=== PATIENT | female | born 1995 | race Caucasian/White ===

== ENCOUNTER 2016-06-14 23:21 | Emergency (ER) | payer SELFPAY ==
[2016-06-15 00:19] VITALS: BP 151/103
== END 2016-06-15 04:15 | disposition left against medical advice (07) ==
LOC: ED 23:21
DX: N93.9 Abnormal uterine and vaginal bleeding, unspecified (principal); Z53.21 Procedure and treatment not carried out due to patient leaving prior to being seen by health care provider

== ENCOUNTER 2017-06-14 16:18 | Emergency (ER) | payer SELFPAY ==
[2017-06-14 16:57] VITALS: BP 143/104
[2017-06-14] MEDS ORDERED: ASPIRIN PO ONE (16:57)
[2017-06-14 17:35] LABS: Basophils # (Auto) 0.1 K/mm3 (0.0-0.1); Basophils % (Auto) 0.9 % (0.0-1.8); Eosinophils # (Auto) 0.2 K/mm3 (0.0-0.4); Eosinophils % (Auto) 2.4 % (0.0-4.3); Hematocrit 38.2 % (30.3-42.9); Hemoglobin 12.7 gm/dl (10.1-14.3); Lymphocytes # (Auto) 2.2 K/mm3 (1.2-5.4); Lymphocytes % (Auto) 33.3 % (13.4-35.0); Mean Corpuscular HGB Conc 33 % (30-34); Mean Corpuscular Hemoglobin 28 pg (28-32); Mean Corpuscular Volume 84 fl (79-97); Monocytes # (Auto) 0.6 K/mm3 (0.0-0.8); Monocytes % (Auto) 8.8 % (0.0-7.3); Platelet Count 193 K/mm3 (140-440); Red Blood Count 4.56 M/mm3 (3.65-5.03); Red Cell Distribution Width 14.3 % (13.2-15.2)
[2017-06-14 17:46] LABS: BUN/Creatinine Ratio 17; Blood Urea Nitrogen 10 mg/dL (7-17); Calcium 9.4 mg/dL (8.4-10.2); Hemolysis Index 13
[2017-06-14 17:54] LABS: HCG Qualitative,Urine Negative (Negative)
[2017-06-14 17:59] LABS: Bilirubin,Urine NEG (Negative); Blood,Urine NEG (Negative); Color,Urine Yellow (Yellow); Protein,Urine <15 mg/dL mg/dL (Negative); Urobilinogen,Urine < 2.0 mg/dL (<2.0)
== END 2017-06-14 18:04 | disposition left against medical advice (07) ==
LOC: ED 16:18
DX: R07.9 Chest pain, unspecified (principal); Z53.21 Procedure and treatment not carried out due to patient leaving prior to being seen by health care provider
CPT/HCPCS: 36415; 80048; 81001; 81025; 84484; 85025; 93005; 93010

== ENCOUNTER 2017-11-08 13:01 | Emergency (ER) | payer SELFPAY ==
[2017-11-08 14:51] VITALS: BP 149/99
--- NOTE | 2017-11-08 15:54 | Emergency Department Report ---
<ZAYNAB HALL LYNCANDIDO - Last Filed: 11/08/17 18:48> ED Abdominal Pain HPI - General Chief Complaint: Back Pain/Injury Stated Complaint: LOWER BACK PAIN Time Seen by Provider: 11/08/17 15:23 Source: patient Mode of arrival: Ambulatory Limitations: No Limitations - History of Present Illness Initial Comments: This is a 22-year-old -English female who presents with lower abdominal and back pain for one week. Patient reports discomfort to pelvic area. There are nausea without vomiting and diarrhea with associated symptoms. Patient reports last initial period 10/07/2017, A0. Patient admits to unprotected intercourse. She is also complaining of urgency and frequency without vaginal discharge. Patient states a laxative she on Sunday had a normal bowel movement and been having diarrhea ever since. Feels feel bloated and crampy with intermittent sharp pains radiating to back. She denies vaginal bleeding or discharge, fever, chest pain, and vomiting. MD Complaint: abdominal pain Onset/Timin -: week(s) Location: diffuse Radiation: back (lower back ) Migration to: no migration Severity: mild Severity scale (0 -10): 4 Quality: cramping Consistency: intermittent Improves With: nothing Worsens With: eating Associated Symptoms: nausea, diarrhea. denies: vomiting, fever, chills, constipation, dysuria, hematemesis, hematochezia, melena, hematuria, anorexia, syncope - Related Data LMP Date: 10/07/17 Previous Rx's Medication Instructions Recorded Last Taken Type Sulfamethoxazole/Trimethoprim 1 each PO BID #14 tablet 11/08/17 Unknown Rx [Bactrim DS TAB] Allergies Allergy/AdvReac Type Severity Reaction Status Date / Time No Known Allergies Allergy Unverified 06/15/16 00:15 ED Review of Systems ROS: Stated complaint: LOWER BACK PAIN Other details as noted in HPI Constitutional: denies: chills, fever Respiratory: denies: cough, shortness of breath, wheezing Cardiovascular: denies: chest pain, palpitations Gastrointestinal: abdominal pain (difuse abdominal pain), nausea, diarrhea Genitourinary: denies: urgency, dysuria, discharge Skin: denies: rash, lesions Neurological: denies: headache, weakness, paresthesias Psychiatric: denies: anxiety, depression ED Past Medical Hx - Past Medical History Hx Hypertension: No Hx Sickle Cell Disease: Yes (trait only) - Surgical History Past Surgical History?: No - Social History Smoking Status: Current Every Day Smoker Substance Use Type: Marijuana - Medications Home Medications: Home Medications Medication Instructions Recorded Confirmed Last Taken Type Sulfamethoxazole/Trimethoprim 1 each PO BID #14 tablet 11/08/17 Unknown Rx [Bactrim DS TAB] ED Physical Exam - General Limitations: No Limitations General appearance: alert, in no apparent distress, obese - Respiratory Respiratory exam: Present: normal lung sounds bilaterally. Absent: respiratory distress - Cardiovascular Cardiovascular Exam: Present: regular rate, normal rhythm. Absent: systolic murmur, diastolic murmur, rubs, gallop - GI/Abdominal GI/Abdominal exam: Present: soft, tenderness (left upper quadrant), normal bowel sounds. Absent: guarding, rebound, rigid, organomegaly, mass, bruit - Back Exam Back exam: Present: full ROM. Absent: CVA tenderness (R), CVA tenderness (L) - Neurological Exam Neurological exam: Present: alert, oriented X3 - Psychiatric Psychiatric exam: Present: normal affect, normal mood - Skin Skin exam: Present: warm, dry, intact, normal color. Absent: rash ED Course Vital Signs 11/08/17 14:46 Temperature 99.0 F Pulse Rate 90 Respiratory 18 Rate Blood Pressure 149/99 O2 Sat by Pulse 100 Oximetry ED Medical Decision Making - Lab Data Result diagrams: 11/08/17 16:03 11/08/17 16:03 Lab Results 11/08/17 11/08/17 11/08/17 Range/Units 16:03 16:03 16:03 WBC 6.7 (4.5-11.0) K/mm3 RBC 4.42 (3.65-5.03) M/mm3 Hgb 11.3 (10.1-14.3) gm/dl Hct 34.5 (30.3-42.9) % MCV 78 L (79-97) fl MCH 26 L (28-32) pg MCHC 33 (30-34) % RDW 17.0 H (13.2-15.2) % Plt Count 220 (140-440) K/mm3 Sodium 138 (137-145) mmol/L Potassium 3.7 (3.6-5.0) mmol/L Chloride 99.4 (98-107) mmol/L Carbon Dioxide 28 (22-30) mmol/L Anion Gap 14 mmol/L BUN 8 (7-17) mg/dL Creatinine 0.7 (0.7-1.2) mg/dL Estimated GFR > 60 ml/min BUN/Creatinine Ratio 11 % Glucose 103 H (65-100) mg/dL Calcium 9.4 (8.4-10.2) mg/dL Total Bilirubin 0.20 (0.1-1.2) mg/dL AST 25 (5-40) units/L ALT 9 (7-56) units/L Alkaline Phosphatase 57 (35-129) units/L Total Protein 7.4 (6.3-8.2) g/dL Albumin 4.2 (3.9-5) g/dL Albumin/Globulin Ratio 1.3 % Lipase 23 (13-60) units/L HCG, Quant < 2 (0-4) mIU/mL - Radiology Data Radiology results: report reviewed, image reviewed FINAL REPORT EXAM: US ABDOMEN COMPLETE HISTORY: left upper quad tenderness TECHNIQUE: Standard ultrasound of the abdomen PRIORS: None. FINDINGS: Examination of the gallbladder demonstrates no evidence for gallstones, distention, wall thickening, or pericholecystic fluid. No sonographic Montalvo's sign is elicited. Common bile duct is normal in diameter measuring 2.3 mm. The liver is normal and homogeneous in echogenicity without focal abnormality or intrahepatic biliary dilatation. The pancreas is normal in thickness without focal abnormality or pancreatic duct dilatation. However, the distal pancreas is obscured by bowel gas. The spleen is normal in length measuring 7.3 cm and homogeneous in echogenicity without focal abnormalities. Examination of the kidneys demonstrates both to be normal in size and have normal cortical echogenicity and thickness. The right and left kidneys measure 10.1 cm and 11.3 cm in craniocaudal length, respectively. No evidence for calculi, hydronephrosis, or solid mass is seen in either kidney. The inferior vena cava and aorta are normal. Maximum diameter of the aorta is 1.6 cm in its proximal portion. IMPRESSION: Normal ultrasound of the abdomen. - Medical Decision Making Patient was examined by me. Patient is nontoxic appearing and in no acute distress. Blood pressure is slightly elevated the patient is asymptomatic. Obtained labs and ultrasound of abdomen. All labs are unremarkable. Urinalysis pending. Ultrasound dictated by radiologist and report reviewed by myself with no acute findings. Chart signed and given to nurse practitioner Brendon Coulter. Critical care attestation.: If time is entered above; I have spent that time in minutes in the direct care of this critically ill patient, excluding procedure time. ED Disposition Clinical Impression: Abdominal pain Qualifiers: Abdominal location: unspecified location Qualified Code(s): R10.9 - Unspecified abdominal pain Back pain Qualifiers: Back pain location: back pain in unspecified location Chronicity: unspecified Back pain laterality: unspecified Qualified Code(s): M54.9 - Dorsalgia, unspecified Disposition: DC-07 LEFT AGAINST MED ADVICE Condition: Stable Instructions: Acute Abdominal Pain (ED), Back Pain (ED) Additional Instructions: Follow-up with a primary care doctor in 3-5 days or if symptoms worsen and continue return to emergency room as soon as possible. Prescriptions: Sulfamethoxazole/Trimethoprim [Bactrim DS TAB] 1 each PO BID #14 tablet Referrals: PRIMARY CARE, [Primary Care Provider] - 3-5 Days Forms: AMA Form <BRENDON COULTER - Last Filed: 11/08/17 19:42> ED Medical Decision Making - Lab Data Result diagrams: 11/08/17 16:03 11/08/17 16:03 - Medical Decision Making Patient was signed out to me by PEDIATRIC MEDICAL ASSISTANT Zaynab Hall for pending UA. Patient stated she can not wait any longer and wants to leave. As per Zaynab, patient may have UTI. I explain educated patient of my concerns and further evaluation and treatment the patient refused and signed AMA form. I will treat patient with Bactrim. I did not examine the patient during my interview as she wants to leave. Patient was referred to Follow-up with a primary care doctor in 3-5 days or if symptoms worsen and continue return to emergency room as soon as possible. At time of signing AMA form, the patient does not seem toxic or ill in appearance. No acute signs of distress noted. Patient agrees to treatment plan of care. No further questions noted by the patient. ED Disposition Is pt being admited?: No
[2017-11-08 16:11] LABS: Hematocrit 34.5 % (30.3-42.9); Hemoglobin 11.3 gm/dl (10.1-14.3); Mean Corpuscular HGB Conc 33 % (30-34); Mean Corpuscular Volume 78 fl (79-97); Platelet Count 220 K/mm3 (140-440); Red Blood Count 4.42 M/mm3 (3.65-5.03)
[2017-11-08 16:14] LABS: Mean Corpuscular Hemoglobin 26 pg (28-32)
[2017-11-08 16:40] LABS: Alanine Aminotransferase 9 units/L (7-56); Albumin 4.2 g/dL (3.9-5); BUN/Creatinine Ratio 11; Blood Urea Nitrogen 8 mg/dL (7-17); Calcium 9.4 mg/dL (8.4-10.2); Hemolysis Index 1; Lipase 23 units/L (13-60)
--- NOTE | 2017-11-08 18:46 | Ultrasound Report ---
FINAL REPORT EXAM: US ABDOMEN COMPLETE HISTORY: left upper quad tenderness TECHNIQUE: Standard ultrasound of the abdomen PRIORS: None. FINDINGS: Examination of the gallbladder demonstrates no evidence for gallstones, distention, wall thickening, or pericholecystic fluid. No sonographic Montalvo's sign is elicited. Common bile duct is normal in diameter measuring 2.3 mm. The liver is normal and homogeneous in echogenicity without focal abnormality or intrahepatic biliary dilatation. The pancreas is normal in thickness without focal abnormality or pancreatic duct dilatation. However, the distal pancreas is obscured by bowel gas. The spleen is normal in length measuring 7.3 cm and homogeneous in echogenicity without focal abnormalities. Examination of the kidneys demonstrates both to be normal in size and have normal cortical echogenicity and thickness. The right and left kidneys measure 10.1 cm and 11.3 cm in craniocaudal length, respectively. No evidence for calculi, hydronephrosis, or solid mass is seen in either kidney. The inferior vena cava and aorta are normal. Maximum diameter of the aorta is 1.6 cm in its proximal portion. IMPRESSION: Normal ultrasound of the abdomen.
[2017-11-08 19:33] LABS: Bacteria,Urine 1+ /HPF (Negative); Bilirubin,Urine NEG (Negative); Blood,Urine NEG (Negative); Color,Urine Straw (Yellow); Protein,Urine <15 mg/dL mg/dL (Negative); Urobilinogen,Urine < 2.0 mg/dL (<2.0)
== END 2017-11-08 19:58 | disposition left against medical advice (07) ==
LOC: ED 13:01
DX: R10.30 Lower abdominal pain, unspecified (principal); M54.9 Dorsalgia, unspecified; R11.0 Nausea; R10.2 Pelvic and perineal pain; F17.200 Nicotine dependence, unspecified, uncomplicated; D57.3 Sickle-cell trait; F12.10 Cannabis abuse, uncomplicated
CPT/HCPCS: 36415; 76700; 80053; 81001; 83690; 84702; 85027; 99284

== ENCOUNTER 2019-01-19 20:23 | Emergency (ER) | payer SELFPAY ==
[2019-01-19 20:40] VITALS: BP 133/83
--- NOTE | 2019-01-19 21:05 | Event Note ---
ED Screening Note ED Screening Note: dental abscess to the right upper jaw dental caries on the right upper side states she has an appointment to have a root canal on february 03 no fever no n/v 31 weeks PMHx HTN no allergies to meds will d/c from triage
--- NOTE | 2019-01-19 21:07 | Emergency Department Report ---
ED ENT HPI - General Chief complaint: Dental/Oral Stated complaint: ABCESS ON RT SIDE OF CHEEK Time Seen by Provider: 01/19/19 21:00 Source: patient Mode of arrival: Ambulatory Limitations: No Limitations - History of Present Illness Initial comments: pt is a 23 yo female who presents to the ED with c/o dental abscess to the right upper jaw that began a couple days ago. she states that she has known dental caries on the right upper side and states she has an appointment to have a root canal on february 03. she states that the dentist put a plastic partial filling until she could have a root canal. she denies fever, n/v. she states that she is also currently 31 weeks . she denies any abd pain or vaginal bleeding. PMHx HTN, no allergies to meds. - Related Data Previous Rx's Medication Instructions Recorded Last Taken Type Sulfamethoxazole/Trimethoprim 1 each PO BID #14 tablet 11/08/17 Unknown Rx [Bactrim DS TAB] Acetaminophen [Tylenol] 650 mg PO TID PRN #20 capsule 01/19/19 Unknown Rx Clindamycin [Clindamycin CAP] 450 mg PO TID 7 Days #63 capsule 01/19/19 Unknown Rx Allergies Allergy/AdvReac Type Severity Reaction Status Date / Time procaine [From Novocain] Allergy Unknown Verified 01/19/19 21:10 ED Dental HPI - General Chief complaint: Dental/Oral Stated complaint: ABCESS ON RT SIDE OF CHEEK Time Seen by Provider: 01/19/19 21:00 Source: patient Mode of arrival: Ambulatory Limitations: No Limitations - Related Data Previous Rx's Medication Instructions Recorded Last Taken Type Sulfamethoxazole/Trimethoprim 1 each PO BID #14 tablet 11/08/17 Unknown Rx [Bactrim DS TAB] Acetaminophen [Tylenol] 650 mg PO TID PRN #20 capsule 01/19/19 Unknown Rx Clindamycin [Clindamycin CAP] 450 mg PO TID 7 Days #63 capsule 01/19/19 Unknown Rx Allergies Allergy/AdvReac Type Severity Reaction Status Date / Time procaine [From Novocain] Allergy Unknown Verified 01/19/19 21:10 ED Review of Systems ROS: Stated complaint: ABCESS ON RT SIDE OF CHEEK Other details as noted in HPI Comment: All other systems reviewed and negative ED Past Medical Hx - Past Medical History Previous Medical History?: Yes Hx Hypertension: No Hx Sickle Cell Disease: Yes (trait only) Hx Asthma: Yes - Surgical History Past Surgical History?: No - Social History Smoking Status: Never Smoker Substance Use Type: None - Medications Home Medications: Home Medications Medication Instructions Recorded Confirmed Last Taken Type Sulfamethoxazole/Trimethoprim 1 each PO BID #14 tablet 11/08/17 Unknown Rx [Bactrim DS TAB] Acetaminophen [Tylenol] 650 mg PO TID PRN #20 capsule 01/19/19 Unknown Rx Clindamycin [Clindamycin CAP] 450 mg PO TID 7 Days #63 capsule 01/19/19 Unknown Rx ED Physical Exam - General Limitations: No Limitations General appearance: alert, in no apparent distress - Head Head exam: Present: atraumatic, normocephalic - Eye Eye exam: Present: normal appearance - ENT ENT exam: Present: normal orophraynx, mucous membranes moist, other (dental abscess present to the right upper gum line, there is dental fillings present in the right upper jaw) - Neurological Exam Neurological exam: Present: alert, oriented X3 - Psychiatric Psychiatric exam: Present: normal affect, normal mood - Skin Skin exam: Present: warm, dry, intact ED Course Vital Signs 01/19/19 01/19/19 20:28 21:03 Temperature 98.9 F 98.9 F Pulse Rate 108 H 105 H Respiratory 18 18 Rate Blood Pressure 133/83 133/83 O2 Sat by Pulse 99 99 Oximetry ED Medical Decision Making - Medical Decision Making pt is a 23 yo female who presents to the ED with c/o dental abscess to the right upper jaw that began a couple days ago. she states that she has known dental caries on the right upper side and states she has an appointment to have a root canal on february 03. she states that the dentist put a plastic partial filling until she could have a root canal. she denies fever, n/v. she states that she is also currently 31 weeks . she denies any abd pain or vaginal bleeding. PMHx HTN, no allergies to meds. VSS. on exam: dental abscess present to the right upper gum line, there is dental fillings present in the right upper jaw. given prescription for clindamycin and tylenol. advised pt please take medication as prescribed. may use tylenol for any discomfort. follow up with your dentist in the next 3-5 day. return to the emergency room for any new or worsening symptoms. Critical care attestation.: If time is entered above; I have spent that time in minutes in the direct care of this critically ill patient, excluding procedure time. ED Disposition Clinical Impression: Dental abscess Disposition: TO HOME OR SELFCARE Is pt being admited?: No Does the pt Need Aspirin: No Condition: Stable Instructions: Dental Abscess (ED) Additional Instructions: please take medication as prescribed. may use tylenol for any discomfort. follow up with your dentist in the next 3-5 day. return to the emergency room for any new or worsening symptoms. Prescriptions: Clindamycin [Clindamycin CAP] 450 mg PO TID 7 Days #63 capsule Acetaminophen [Tylenol] 650 mg PO TID PRN #20 capsule PRN Reason: pain Referrals: your, dentist [Other] - 3-5 Days Time of Disposition: 21:10 Print Language: ARABIC
== END 2019-01-19 21:40 | disposition home or self-care (01) ==
LOC: ED 20:23
DX: O99.613 Diseases of the digestive system complicating pregnancy, third trimester (principal); K04.7 Periapical abscess without sinus; Z79.899 Other long term (current) drug therapy; Z88.8 Allergy status to other drugs, medicaments and biological substances; Z3A.31 31 weeks gestation of pregnancy

== ENCOUNTER 2019-01-22 10:50 | Outpatient (CLI) | payer SELFPAY ==
[2019-01-22] MEDS ORDERED: LACTATED RINGERS 500 ML IV ONE (11:39)
[2019-01-22 12:34] LABS: Bacteria,Urine 1+ /HPF (Negative); Bilirubin,Urine NEG (Negative); Blood,Urine NEG (Negative); Mucus,Urine FEW /HPF; Protein,Urine <15 mg/dL mg/dL (Negative); Urobilinogen,Urine < 2.0 mg/dL (<2.0)
[2019-01-22 12:36] LABS: Color,Urine Yellow (Yellow)
== END 2019-01-22 12:40 | disposition left against medical advice (07) ==
LOC: TRG 10:50
PROVIDERS: ATTEND Obstetrics & Gynecology
DX: O47.03 False labor before 37 completed weeks of gestation, third trimester (principal); Z3A.31 31 weeks gestation of pregnancy
CPT/HCPCS: 59025; 81001